=== PATIENT | female | born 1930 | race Caucasian/White ===

== ENCOUNTER 2016-09-09 09:46 | Emergency (ER) | payer MEDICARE, MEDICAID ==
[~2016-09-09] VITALS: Ht 165.1 cm; Wt 47.6 kg
[~2016-09-09 09:46] MED LIST: ALLERCLEAR10 MG PO; BACLOFEN 10MG T10 MG PO; CARBIDOPA/LE1 TABLE2 PO; CLONAZEPAM0.5 M1 PO; CYCLOBENZ5 MG PO; CYCLOBENZAPRINE5 MG PO; HUMALOG100 U/ML SC; IPRATROPIUM BROM3 M2 IH; LACTULOSE10 GM/15 M PO; LEVAQUIN500 MG PO; LIORESAL 10MG.10 MG PO; MAGNESIUM400 M1 PO; METOPROLOL25 MG PO; MIRALAX(PO17 GM/1 PA PO; NITROSTAT0.4 MG SL; OMEPRAZOLE20 MG PO; REQUIP0.25 M1 PO; REQUIP0.25 MG PO; REQUIP0.5 MG PO; SIMVASTATIN80 MG PO; TOUJEO300 U/ML SC; TRAMADOL 50MG T50 M1 PO; TRAZODONE 50MG50 MG PO; VITAMIN D1000 IU PO; VITAMIN D3 COM1 EACH PO; VITAMIN D50000 I1 PO; WARFARIN 3MG TAB3 MG PO; XARELTO20 MG PO; ZOFRAN4 MG PO
--- NOTE | 2016-09-09 12:31 | Emergency Room Report ---
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 N Clinical Suspician of Infection? N Mental Status: 1 - Regular (Normal Baseline) Sepsis Risk:Low Sepsis Risk Have you (or family members/close friends) recently traveled outside the [place]? N If Yes, where/when: Have you had exposure to infectious disease within the past month? N TB? Other? Specify: Source patient, RN notes reviewed, family, RN/MD Exam Limitations no limitations Comment This is an 86-year-old female presenting the emergency room for evaluation of her low and upper back pain sustained just half an hour prior to arrival. Patient stated that she was walking out of the bathroom, tripped and fell, landing on her low back. Patient is typically using a walker at home, to aid her with her ambulation. However the time of fall patient was not using her walker. Patient just underwent kyphoplasty of T7 vertebral body, approximately 2 weeks ago, by Dr. Sage Reyes.. Patient denies any fecal or urinary incontinence, any saddle anesthesia, any neurological deficits of the lower extremities. She denies any neck pain or head injury/LOC. ALLERGIES Coded Allergies: aspirin (11/09/15) codeine (11/09/15) etodolac (11/09/15) nitroglycerin (11/09/15) phenobarbital (11/09/15) Home Medications Reported Medications ERGOCALCIFEROL (VITAMIN D2) (Vitamin D2) 50,000 IUNITS PO WEEKLY Omeprazole (Omeprazole 20MG) 20 MG PO DAILY CARBIDOPA 25/LEVODOPA 100 (Carbidopa-Levodopa 25-100 Tab) 1 TABLET PO TID ROPINIROLE HCL (Requip 0.25MG) 0.5 MG PO QHS ROPINIROLE HCL (Requip 0.25MG) 0.25 MG PO Q 0900 Ropinirole Hydrochloride (Requip) 0.25 MG PO Q1300 TRAMADOL HCL (Tramadol) 100 MG PO BID Ropinirole HCl (Requip 0.5MG) 0.5 MG PO QHS BACLOFEN (Baclofen) 10 MG PO BIDP PRN MUSCLE SPASMS Cyclobenzaprine Hcl (Cyclobenzaprine) 5 MG PO BID IPRATROPIUM/ALBUTEROL SULFATE (Iprat-Albut 0.5-3(2.5) MG/3 Ml) 3 ML IH Q6HP PRN BREATHING Lactulose (Lactulose) 10 GM PO QID Nitroglycerin (Nitrostat) 0.4 MG SL [id number] PRN CHEST PAIN ONDANSETRON HCL (Zofran 4MG Tab) 4 MG PO Q6HP PRN NAUSEA AND VOMITING POLYETHYLENE GLYCOL (Miralax) 17 GM PO DAILY Clonazepam (Clonazepam 0.5MG) 0.5 MG PO QHS Baclofen (Lioresal 10mg Tab) 5 MG PO QID Insulin Lispro, Recombinant (Humalog 100 UNITS/ML 10ML) 3-6 Vial SC ACHS PRN ANXIETY Loratadine (Allerclear) 10 MG PO DAILY Magnesium Oxide (Magnesium) 400 MG PO DAILY Metoprolol Tartrate (Metoprolol) 12.5 MG PO BID INSULIN GLARGINE,HUM.REC.ANLOG (Toujeo Solostar) 15 UNITS SC DAILY TRAZODONE HCL (Trazodone HCl) 25 MG PO QHS Mv-Mn/Iron/FA/Herbal Cmplx#190 (Vitamin D3 Complete Caplet) 50,000 EACH PO WEELKY Rivaroxaban (Xarelto) 20 MG PO DAILY History Medical History General CAD? Yes Angina: No GA: No Hypertension? Yes Hyperlipidemia? Yes CHF? No DVT? No PE? No COPD? Yes Asthma? No Anemia? No GERD? No Gastric ulcers? No GI Bleed? No Hernia? Yes Thyroid Problems? No Hypothyroidism? No CVA? Yes Seizures? No Diabetes? Yes Insulin Dependent: Yes Insulin Pump: No Home FSBS? Yes Renal Insuffiency? No End Stage Renal Disease? No UTI? No Stones? No BPH? No GB Disease: Yes Nephritic Syndrome? No Asplenia? No Hepatitis? No Sickle Cell Disease? No Arthritis? No Migraines? No Cataracts? No Glaucoma? No MRSA? No HIV? No TB? No Anxiety? No Depression? No Cancer? No More? Yes Additional hx: VITAMINS D DEFICIENCY, PARKINSONN DISEAS HEART FAILURE Immunization Hx DT/Tetanus > 10 YRS Flu Refused Pneumonia Refuses Surgical Hx Previous Surgery?Y Cholecystectomy HYSTERECTOMY BLADDER TACK RECTAL/ CYSTOCELE REPAIR Tubal Ligation STOMACH KYPOPLASTY 2016 Family History Family Hx Diabetes Yes CAD Yes Hypertension Yes Hyperlipidemia Yes Cancer No TB No Social History Smoking Hx Smoker: Never Smoker Tobacco: No Alcohol Alcohol: No Review of Systems All Other Systems Reviewed and Negative Musculoskeletal back pain Physical Exam Vital Signs Vital Signs Date Time Temp Pulse Resp B/P Pulse O2 O2 Flow FiO2 Ox Delivery Rate 09/09 1351 65 18 175/85 99 3 09/09 1307 66 18 173/93 100 3 09/09 1138 63 18 156/70 100 3 09/09 1132 18 09/09 1040 60 18 142/68 98 3 09/09 0948 97.6 63 18 165/76 93 3 General Appearance normal appearance, WD/WN, moderate distress Eye Exam - bilateral eye normal exam, bilateral eye PERRL, bilateral eye EOMI, bilateral eye other Neck normal inspection, non-tender, supple, full range of motion Respiratory Status Yes: trachea midline, chest symmetrical, non tender chest. No: respiratory distress. Lung Sounds bilateral: normal breath sounds, lungs clear. 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 No Comment On renal patient patient appears medically stable, clinically improving. Advised patient to change positions slowly and resume normal activities towards the evening hours. She can follow-up with Dr. Sage Reyes if not better, tomorrow. Results/Orders Current Medication Orders Sig/Tavon Start time Last Medication Dose Route Stop Time Status Admin Morphine Sulfate 0 .STK-MED ONE 09/09 1131 DCr .ROUTE Ondansetron HCl 0 .STK-MED ONE 09/09 1131 DC .ROUTE Morphine Sulfate 2 MG ONCE ONE 09/09 1130 DCr 09/09 IM 09/09 1131 1132 Ondansetron HCl 4 MG ONCE ONE 09/09 1130 DC 09/09 IM 09/09 1131 1133 Morphine Sulfate 0 .STK-MED ONE 09/09 1034 DCr .ROUTE Ondansetron HCl 0 .STK-MED ONE 09/09 1034 DC .ROUTE Morphine Sulfate 4 MG ONCE ONE 09/09 1000 DCr IM 09/09 1001 Ondansetron HCl 4 MG ONCE ONE 09/09 1000 DC IM 09/09 1001 Orders Procedure Date/time Status CT SCAN REQUEST 09/[address] SCAN REQUEST 09/09 0957 Complete XRAY/CT/US XRAY/CT/US 1 CT T-spine CT interpretation by discussed w/radiologist (Dr Zayas) CT Results no acute fx, T7 kyphoplasty XRAY/CT/US 2 CT L-spine CT interpretation by discussed w/radiologist (Dr Zayas) CT Results no fracture seen, severe OA + DJD Departure Departure Time of Disposition 1353 Disposition DC Home or Self Care(routine) Clinical Impression Primary Impression: Sprain of thoracic spine Qualifiers: Encounter type: initial encounter Qualified Code: S23.9XXA - Sprain of unspecified parts of thorax, initial encounter Condition STABLE Referrals Sage Reyes MD: Tomorrow-Call Office if not better Patient Instructions DI for Thoracic Back Pain Additional Instructions Please follow-up with Dr. Sage Reyes if any further problems related to your thoracic spine. Discharge Counseling Counseled pt/family regarding diagnosis, test results, medications/RX, home care, follow up needs Comment Take your pain medications previously prescribed for Dr. Sage Reyes's instructions. ED Critical Care Critical Care No at [id number]
--- NOTE | 2016-09-09 13:06 | RADIOLOGY REPORT PS360 ---
CT LUMBAR SPINE W/O CONTRAST CLINICAL INDICATION: Low back pain after a fall LOW BACK PAIN, S/P FALL, S/P KYPHOPLASTY ORDERING PHYSICIAN: Derian Luna MD PATIENT AGE: 86 years COMPARISON: MRI of 11/08/2013 TECHNIQUE:Axial, sagittal, and coronal images are generated and reviewed without contrast FINDINGS:There is reversal of the upper lumbar lordosis. No acute fracture or dislocation is evident. Dextroscoliosis of the lumbar spine. There is moderate anterior wedging at T12 and mild anterior wedging of L2. This is not significant change from 11/08/2013. Multilevel degenerative disc disease with facet spondylosis is noted. L1-L2: Degenerative disc disease. L2-L3: Severe degenerative disc disease with facet hypertrophic change with 3 mm retrolisthesis of L2. L3-L4: Degenerative disc disease with 3 mm retrolisthesis of L3. L4-5: Mild bulging disc. L5-S1: Severe degenerative disc disease. IMPRESSION: 1. Old compression changes of T12 and L2. 2. Severe lumbar spondylosis with facet arthritic change and lumbar scoliosis. 3. No acute fracture
--- NOTE | 2016-09-09 13:41 | RADIOLOGY REPORT PS360 ---
CT THORACIC SPINE W/O CONTRAST INDICATION: Fall with upper back pain. Prior kyphoplasty UPPER BACK PAIN, S/P FALL ORDERING PHYSICIAN: Derian Luna MD PATIENT AGE: 86 years COMPARISON: 09/09/2015 TECHNIQUE: Axial images are obtained without contrast. Sagittal and coronal reformatted images are reviewed as well. FINDINGS: There has been interval kyphoplasty at T7 with severe anterior wedging of T7 with loss of height anteriorly of greater than 50%. No extruded methylmethacrylate. There is generalized osteopenia. There is chronic wedging of T12 and L2 with loss of height anteriorly at T12 of 40% and at L2 to 30%. No retropulsed fragments are apparent. No acute fracture or dislocation is evident. Moderate to severe elevation of left hemidiaphragm with underlying atelectatic changes with chronic pulmonary fibrotic changes noted. Coronary artery calcification is present. IMPRESSION: 1. Status post interval vertebroplasty at T7 with wedge compression changes of T7 and greater than 50% anterior wedging without obvious retropulsion 2. Chronic wedge compressive changes at T12 and L2 with kyphosis. 3. No acute fracture apparent
[2016-09-09 14:15] VITALS: BP 160/78
== END 2016-09-09 14:25 | disposition home or self-care (01) ==
LOC: ER 09:46
DX: S22.000G Wedge compression fracture of unspecified thoracic vertebra, subsequent encounter for fracture with delayed healing (principal); W19.XXXA Unspecified fall, initial encounter; Z87.39 Personal history of other diseases of the musculoskeletal system and connective tissue
CPT/HCPCS: J2405